=== PATIENT | male | born 1950 | race Caucasian/White ===

== ENCOUNTER 2022-03-08 06:27 | Inpatient (IN) ==
[2022-03-08] MEDS ORDERED: CeFAZolin Syr 3,000MG/30 ML 3,000 MG/30 ML SYRINGE IVPB ONE (06:49)
[2022-03-08] MEDS ORDERED: Acetaminophen IV 1,000 MG/100 ML BAG IVPB ONE (06:59)
[2022-03-08] MEDS ORDERED: Ringers Solution, Lactated 1,000 ML IVC SCH (07:00)
[2022-03-08] MEDS ORDERED: Vancomycin 2,000 MG/520 ML IV.SOLN IVPB ONE ×2 (07:00→20:00)
[2022-03-08] MEDS ORDERED: Bupivacaine-MPF 0.25% 10 ML VIAL ONE (07:11)
[2022-03-08] MEDS ORDERED: Protamine Sulfate 50 MG/5 ML VIAL IVP ONE (07:11)
[2022-03-08] MEDS ORDERED: Heparin 1,000 UNITS/500 mL 1,000 ML ONE (07:12)
[2022-03-08] MEDS ORDERED: Ondansetron 4 MG/2 ML VIAL IVP PRN ×2 (07:13→14:08)
[2022-03-08] MEDS ORDERED: *HR* FentaNYL (PF) 100 MCG/2 ML VIAL IVP PRN (07:13)
[2022-03-08] MEDS ORDERED: Lidocaine -MPF 2% 2 ML VIAL ONE ×2 (07:14→07:25)
[2022-03-08] MEDS ORDERED: Heparin 1,000 UNITS/500 mL 0 ML ONE (07:14)
[2022-03-08] MEDS ORDERED: Dexmedetomidine HCl 400 MCG/100 ML MLS IVC ONE (07:16)
[2022-03-08] MEDS ORDERED: Lidocaine -MPF 4% 5 ML AMPUL ONE (07:17)
[2022-03-08] MEDS ORDERED: *HR* Propofol 200 MG/20 ML VIAL IVP ONE (07:21)
[2022-03-08] MEDS ORDERED: *HR* FentaNYL (PF) 100 MCG/2 ML VIAL ONE (07:21)
[2022-03-08] MEDS ORDERED: Ondansetron 4 MG/2 ML VIAL ONE (07:21)
[2022-03-08] MEDS ORDERED: *HR* Rocuronium Bromide 50 MG/5 ML VIAL ONE (07:25)
[2022-03-08] MEDS ORDERED: *HR* Phenylephrine 10 MG/ML VIAL ONE ×2 (07:25→10:26)
[2022-03-08] MEDS ORDERED: *HR* Succinylcholine 200 MG/10 ML VIAL IVP ONE (07:25)
[2022-03-08] MEDS ORDERED: *HR* Remifentanil 2 MG VIAL IVP ONE (07:26)
[2022-03-08] MEDS ORDERED: *HR* Heparin 5,000 UNIT/ML VIAL ONE ×2 (07:30→09:49)
[2022-03-08] MEDS ORDERED: *HR* Vasopressin 20 UNIT/ML VIAL ONE (07:38)
[2022-03-08] MEDS ORDERED: Vancomycin 1,000 MG, Sodium Chloride IRRigation 1,000 ML IR ONE (07:45)
[2022-03-08] MEDS ORDERED: *HR* Midazolam HCl 2 MG/2 ML VIAL ONE (07:54)
[2022-03-08] MEDS ORDERED: *HR* HYDROMORPHONE 2 MG/ML VIAL ONE (09:28)
[2022-03-08] MEDS ORDERED: *HR* Remifentanil 1 MG VIAL IVP ONE (09:50)
[2022-03-08] MEDS ORDERED: 0.9 % Sodium Chloride 1,000 ML IVC SCH (14:08)
[2022-03-08] MEDS ORDERED: Naloxone 0.4 MG/ML INJ IVP PRN (14:08)
[2022-03-08] MEDS ORDERED: *HR* HYDROcodone/Acet 5/325 mg TABLET PO PRN (14:08)
[2022-03-08] MEDS ORDERED: *HR* Labetalol 20 MG/4 ML SYRINGE IVP PRN (14:08)
[2022-03-08] MEDS ORDERED: Nitroglycerin 0.4 MG TAB.SUBL SL PRN (14:08)
[2022-03-08] MEDS ORDERED: Acetaminophen 325 MG TABLET PO PRN (14:08)
[2022-03-08] MEDS ORDERED: *HR* OxyCODONE Immed Rel 5 MG TABLET PO PRN (14:08)
[2022-03-08] MEDS: *HR* Metoprolol 5 MG/5 ML VIAL IVP SCH ×2 (15:01→16:51)
[2022-03-08] MEDS: ceFAZolin 3,000 MG in 0.9 % Sodium Chloride 100 ML IVPB SCH (16:43)
[2022-03-09] MEDS: *HR* Metoprolol 5 MG/5 ML VIAL IVP SCH ×2 (00:13→06:07)
[2022-03-09] MEDS: ceFAZolin 3,000 MG in 0.9 % Sodium Chloride 100 ML IVPB SCH (00:13)
[2022-03-09] MEDS ORDERED: *HR* Heparin 5,000 UNIT/ML VIAL SQ SCH ×2 (06:00)
[2022-03-09 07:46] VITALS: BP 141/78; TEMP 97.5; O2SAT 97
[2022-03-09] MEDS ORDERED: carvediloL 6.25 MG TABLET PO SCH (08:00)
[2022-03-09] MEDS ORDERED: allopurinoL 300 MG TABLET PO SCH (09:00)
[2022-03-09] MEDS ORDERED: hydroCHLOROthiazide 25 MG TABLET PO SCH (09:00)
[2022-03-09] MEDS ORDERED: Aspirin Enteric Coated 81 MG Tablet PO SCH (09:00)
[2022-03-09 09:03] VITALS: PULSE 68
== END 2022-03-09 11:16 | disposition home or self-care (01) | DRG 38 ==
LOC: SAMDAY 06:27 → 2NNU 13:46
PROVIDERS: ADMIT Surgery; ATTEND Surgery